=== PATIENT | female | born 2000 | race Two or more races ===

== ENCOUNTER 2021-10-03 09:21 | Outpatient (REF) | payer OTHER, SELFPAY ==
[2021-10-03 10:01] LABS: COVID-19 Test Positive (Negative); IDNOW Serial# 08D9AD1C
== END 2021-10-03 09:22 | disposition home or self-care (01) ==
LOC: HO.LAB 09:21
PROVIDERS: Visit Provider Internal Medicine
DX: Z20.822 Contact with and (suspected) exposure to COVID-19 (principal)
CPT/HCPCS: 87635; C9803